=== PATIENT | male | born 1980 | race Caucasian/White ===

== ENCOUNTER → 2016-09-24 | Outpatient (CLI) | payer OTHER ==
[2016-05-22 06:07] VITALS: BP 136/76
[~2016-09-24] MED LIST: OMEP20TA8 PO
--- NOTE | 2016-09-24 10:53 | KCIC ---
Complete abdomen ultrasound complete abdomen ultrasound HISTORY: Epigastric pain FINDINGS: Pancreas appears unremarkable Liver unremarkable. No gallbladder wall thickening or cholelithiasis identified. Right kidney measures 10 cm longitudinal without hydronephrosis. Common bile duct measures 4 mm diameter. Left kidney measures 10.2 cm longitudinal without hydronephrosis. Spleen is not enlarged The aorta is nonaneurysmal. IMPRESSION: No significant sonographic abnormality. Electronically signed by: Kale Hopson MD (09/24/2016 10:49 AM)
== END | disposition home or self-care (01) ==
LOC: KCIC US 07:45
PROVIDERS: ATTEND Family Medicine
DX: R10.13 Epigastric pain (principal)
CPT/HCPCS: 76700

== ENCOUNTER → 2017-04-12 | Outpatient (CLI) | payer OTHER ==
[~2017-04-12] MED LIST changes: +CONTRAST GIVEN MC; -OMEP20TA8 PO
[2017-04-12] MEDS: IOHEXOL 240 MG/ML 50ML VIAL. PO (09:45)
[2017-04-12] MEDS: IOHEXOL 300 MG/ML 100ML VIAL. IV (10:34)
== END | disposition home or self-care (01) ==
LOC: KCIC CT 09:10
DX: R14.0 Abdominal distension (gaseous) (principal); R10.9 Unspecified abdominal pain; M51.45 Schmorl's nodes, thoracolumbar region
CPT/HCPCS: 74177; Q9966; Q9967